=== PATIENT | female | born 1950 | race Caucasian/White ===

== ENCOUNTER → 2018-05-21 08:18 | Outpatient (CLI) | payer MEDICARE, SELFPAY ==
--- NOTE | 2018-05-21 | DI.US.S_ITS ---
PROCEDURE: US RENAL COMPLETE INDICATIONS: KIDNEY STONES TECHNIQUE: Real-time scanning was performed of the kidneys and bladder, with image documentation. COMPARISON: None. FINDINGS: Kidneys: Kidneys are normal in size. Right kidney measures 10.2 cm long; left kidney measures 10.6 cm long. Right renal cortical thickness is 1.5 cm; left renal cortical thickness is 1.8 cm. Renal cortical echotexture is normal. No hydronephrosis or nephrolithiasis. No suspicious solid mass lesions. Bladder: Pre-void bladder volume is 94 mL. Post-void residual is 0 mL. Pre-void images demonstrate no intraluminal masses or stones. On pre-void images, neither of the ureteral jets are noted with color Doppler interrogation. (Of note, ureteral jets may not be detectable in up to 25% of cases due to insufficient differences in specific gravity between ureteral and bladder urine). Miscellaneous: No free pelvic fluid. IMPRESSION: No kidney stones can be seen on these ultrasound images. Dictated by: Cruz Cheek M.D. on 05/21/2018 at 9:53 Approved by: Cruz Cheek M.D. on 05/21/2018 at 9:54
== END ==
PROVIDERS: Visit Provider Family Medicine
DX: N20.0 Calculus of kidney (principal)
CPT/HCPCS: 76770

== ENCOUNTER → 2018-05-30 12:16 | Outpatient (CLI) | payer MEDICARE, SELFPAY ==
[2018-05-30 12:31] LABS: Add Manual Diff / Slide Review NO; Basophils Percent Auto 1.2 % (0-2); Eosinophils Percent Auto 1.5 % (2-4); Hemoglobin 13.9 g/dL (12.0-16.0); Lymphocytes Percent Auto 22.8 % (25-40); Mean Corpuscular HGB Conc 33.8 % (30-36); Mean Corpuscular Hemoglobin 32.7 PG (26-34); Mean Corpuscular Volume 96.6 fL (80-100); Monocytes Percent Auto 9.3 % (3-14); Neutrophils Absolute Auto 2400 /uL (3000-5900); Neutrophils Percent Auto 65.2 % (50-75); Platelet Count 187 X10^3/uL (150-400); Red Blood Cell Count 4.25 X10^6/uL (4.0-5.2); Red Cell Distribution Width 13.2 % (11.6-14.8); White Blood Cell Count 3.7 X10^3/uL (4.5-11.0)
[2018-05-30 13:03] LABS: Alanine Aminotransferase 27 IU/L (9-52); Albumin 4.7 g/dL (3.5-5.0); Albumin Globulin Ratio 1.6 (1.0-2.8); Alkaline Phosphatase 69 U/L (38-126); Aspartate Aminotransferase 47 IU/L (14-36); Bilirubin Total 0.9 mg/dL (0.2-1.3); Blood Urea Nitrogen 8 mg/dL (7-17); Calcium 9.7 mg/dL (8.4-10.2); Carbon Dioxide 27 mmol/L (22-32); Chloride 95 mmol/L (98-107); Estimated Glomerular Filt Rate > 60.0 mL/min (>60); Globulin 2.9 g/dL (1.7-4.1); Glucose 99 mg/dL (80-110); HEMOLYSIS < 15 (0-50); Potassium 4.6 mmol/L (3.4-5.1); Sodium 133 mmol/L (137-145); Total Protein 7.6 g/dL (6.3-8.2)
== END ==
PROVIDERS: Visit Provider Physician Assistant
DX: R10.9 Unspecified abdominal pain (principal)
CPT/HCPCS: 36415; 80053; 85025

== ENCOUNTER 2019-06-06 21:33 | Emergency (ER) | payer MEDICARE, SELFPAY ==
[2019-06-06 21:45] VITALS: BP 158/81; PULSE 80; RESP 18; TEMP 36.8; O2SAT 98; BMI 19.7
[2019-06-06] MEDS: SODIUM CHLORIDE 0.9% 1,000 ML 1000 ML IV ×2 (22:00→23:54)
--- NOTE | 2019-06-06 22:17 | ED.NAVMDI ---
HPI - Nausea/Vomiting/Diarrhea General Chief complaint: Nausea/Vomiting/Diarrhea Stated complaint: nausea and vomiting all day Time Seen by Provider: 06/06/19 22:03 Source: patient Mode of arrival: Ambulatory Limitations: no limitations History of Present Illness HPI Narrative: 68-year-old female. Prior history of breast cancer. Is currently in remission. Here for evaluation of nausea and vomiting throughout the day. Multiple episodes. No blood in his these episodes. No recent camping. No recent antibiotic use. No sick contacts. No diarrhea. Did have some Zofran at home however she states this is not been helping any of her symptoms. Related Data Home Medications Medication Instructions Recorded Confirmed amlodipine 5 mg tablet 5 mg PO DAILY tab 06/06/19 06/06/19 ondansetron HCl 4 mg tablet 4 mg PO Q6-8H PRN 06/06/19 06/06/19 trazodone 50 mg tablet 50 mg PO BEDTIME PRN tab 06/06/19 06/06/19 Previous Rx's Medication Instructions Recorded ondansetron HCl [Zofran] 4 mg PO Q6-8H PRN #14 tab 06/07/19 Allergies Allergy/AdvReac Type Severity Reaction Status Date / Time eye drop preservative Allergy Uncoded 06/06/19 21:48 Review of Systems Constitutional Constitutional: Denies fever(s) Cardiovascular Cardiovascular: Denies chest pain and Denies dyspnea Respiratory Respiratory: Denies dyspnea Gastrointestinal Gastrointestinal: Denies abdominal pain, Denies change in stool character, Reports nausea and Reports vomiting Genitourinary Genitourinary: Denies dysuria Musculoskeletal Musculoskeletal: Denies myalgias and Denies arthralgias Integumentary/Breasts Skin/Breast: Denies rash Neurologic Neurologic: Denies behavioral changes Psychiatric Psychiatric: Denies anxiety and Denies behavioral changes Hematologic/Lymphatic Hematologic/Lymphatic: Denies easy bleeding and Denies easy bruising [facility] Medical History Breast cancer (Acute) Social History Smoking Status: Former smoker Social History Smoking Status: Former smoker Exam Initial Vital Signs Initial Vital Signs: Vital Signs Temperature 98.2 F 06/06/19 21:45 Pulse Rate 80 06/06/19 21:45 Respiratory Rate 18 06/06/19 21:45 Blood Pressure 158/81 H 06/06/19 21:45 Pulse Oximetry 98 06/06/19 21:45 Const General: cooperative, healthy appearing, comfortable, well developed and well groomed Orientation: alert and oriented x3 Resp Effort & Inspection: normal respiratory effort Auscultation: clear to auscultation bilaterally Cardio Rate: regular rate Rhythm: regular rhythm GI Inspection: non-distended Palpation: soft and No firm Skin Lesions: no lesions Rashes: no rashes Neuro General: alert and awake Cognition: normal cognition Speech: speech normal Extrem General: normal to inspection, capillary refill normal and No edema Psych Appearance: grossly normal and well kempt Course Orders Ordered: ED Orders 06/06/19 21:50 Complete Blood Count AUTO DIFF Stat Comprehensive Metabolic Panel Stat Lipase Stat 06/06/19 22:52 Urine Microscopic Stat Discontinued Medications Sodium Chloride (Normal Saline 0.9%) 1,000 mls @ 1,000 mls/hr IV BOLUS ONE Stop: 06/06/19 23:16 Last Infusion: 06/06/19 23:23 Dose: 0 mls/hr Documented by: Admin: 06/06/19 22:00 Dose: 1,000 mls/hr Documented by: CAPRICE Sodium Chloride (Normal Saline 0.9%) 1,000 mls @ 1,000 mls/hr IV BOLUS ONE Stop: 06/07/19 00:37 Last Infusion: 06/07/19 01:09 Dose: 0 mls/hr Documented by: Admin: 06/06/19 23:54 Dose: 1,000 mls/hr Documented by: SANTANA Metoclopramide HCl (Reglan) 10 mg IV NOW ONE Stop: 06/06/19 22:18 Last Admin: 06/06/19 22:41 Dose: 10 mg Documented by: CAPRICE Ondansetron HCl (Zofran) 4 mg IV NOW ONE Stop: 06/06/19 23:43 Last Admin: 06/06/19 23:53 Dose: 4 mg Documented by: SANTANA Vital Signs Vital signs: Vital Signs - 8 hr 06/06/19 21:45 06/06/19 22:59 06/07/19 01:28 Temperature 98.2 F Pulse Rate 80 66 64 Respiratory Rate 18 17 14 Blood Pressure 158/81 H 144/71 H Blood Pressure [Left Arm] 154/69 H Pulse Oximetry 98 100 99 MDM - Nausea/Vomiting/Diarrhea Lab Data Attestation: I reviewed the patient's lab results. Result diagrams: 06/06/19 21:50 06/06/19 21:50 Labs: Lab Results 06/06/19 06/06/19 06/06/19 Range/Units 21:50 21:50 21:50 WBC 4.7 (4.5-11.0) X10^3/uL RBC 4.02 (4.0-5.2) X10^6/uL Hgb 13.7 (12.0-16.0) g/dL Hct 40.1 (36-46) % MCV 99.8 (80-100) fL MCH 34.1 H (26-34) PG MCHC 34.2 (30-36) % RDW 13.8 (11.6-14.8) % Plt Count 210 (150-400) X10^3/uL Neut % (Auto) 77.5 H (50-75) % Lymph % (Auto) 15.1 L (25-40) % [place] % (Auto) 5.5 (3-14) % Eos % (Auto) 0.6 L (2-4) % Baso % (Auto) 1.3 (0-2) % Neut # (Auto) 3600 (2713-9986) /uL Lymph # (Auto) 700 L (6741-2762) /uL [place] # (Auto) 300 (0-900) /uL Eos # (Auto) 0 (0-450) /uL Baso # (Auto) 100 (0-100) /uL Sodium 131 L (137-145) mmol/L Potassium 3.7 (3.4-5.1) mmol/L Chloride 95 L (98-107) mmol/L Carbon Dioxide 28 (22-32) mmol/L BUN 13 (7-17) mg/dL Creatinine 0.60 (0.52-1.04) mg/dL Estimated GFR > 60.0 (>60) mL/min BUN/Creatinine Ratio 21.7 (6-22) Glucose 133 H (80-110) mg/dL Calcium 9.3 (8.4-10.2) mg/dL Total Bilirubin 0.8 (0.2-1.3) mg/dL AST 45 H (14-36) IU/L ALT 19 (9-52) IU/L Alkaline Phosphatase 85 (38-126) U/L Total Protein 7.4 (6.3-8.2) g/dL Albumin 4.4 (3.5-5.0) g/dL Globulin 3.0 (1.7-4.1) g/dL Albumin/Globulin Ratio 1.5 (1.0-2.8) Lipase 246 (23-300) U/L Urine RBC (0-5/HPF) Urine WBC (0-5/HPF) Ur Squamous Epith Cells (0-5/HPF) Amorphous Sediment Urine Bacteria (None) Hyaline Casts (None) Ur Culture Indicated? 06/06/19 Range/Units 22:52 WBC (4.5-11.0) X10^3/uL RBC (4.0-5.2) X10^6/uL Hgb (12.0-16.0) g/dL Hct (36-46) % MCV (80-100) fL MCH (26-34) PG MCHC (30-36) % RDW (11.6-14.8) % Plt Count (150-400) X10^3/uL Neut % (Auto) (50-75) % Lymph % (Auto) (25-40) % [place] % (Auto) (3-14) % Eos % (Auto) (2-4) % Baso % (Auto) (0-2) % Neut # (Auto) (7786-4840) /uL Lymph # (Auto) (6920-0327) /uL [place] # (Auto) (0-900) /uL Eos # (Auto) (0-450) /uL Baso # (Auto) (0-100) /uL Sodium (137-145) mmol/L Potassium (3.4-5.1) mmol/L Chloride (98-107) mmol/L Carbon Dioxide (22-32) mmol/L BUN (7-17) mg/dL Creatinine (0.52-1.04) mg/dL Estimated GFR (>60) mL/min BUN/Creatinine Ratio (6-22) Glucose (80-110) mg/dL Calcium (8.4-10.2) mg/dL Total Bilirubin (0.2-1.3) mg/dL AST (14-36) IU/L ALT (9-52) IU/L Alkaline Phosphatase (38-126) U/L Total Protein (6.3-8.2) g/dL Albumin (3.5-5.0) g/dL Globulin (1.7-4.1) g/dL Albumin/Globulin Ratio (1.0-2.8) Lipase (23-300) U/L Urine RBC 0-1/hpf (0-5/HPF) Urine WBC 1-5/hpf (0-5/HPF) Ur Squamous Epith Cells 1-5 /hpf (0-5/HPF) Amorphous Sediment 1+ Urine Bacteria Occasional (0-1) (None) Hyaline Casts 0-1/lpf (None) Ur Culture Indicated? Cult not indicated Urine Dip Bedside Urine Glucose Negative Bedside Urine Bilirubin - Negative Bedside Urine Ketone ++ 40 Urine Specific [place] 10.015 Bedside Urine Occult Blood - Negative Bedside Urine pH 7.0 Bedside Urine Protein +/- 15 Bedside Urine Urobilinogen - Negative Bedside Urine Nitrite - Negative Bedside Urine Leukocytes - Negative Esterase MDM Narrative Medical decision making narrative: Patient had a benign exam. After 1 L of fluids she failed an oral challenge. She was given more Zofran another L fluids and labs were checked. These were unremarkable. After the 2nd L fluids and the IV Zofran she did tolerate oral intake. No indication for antibiotics. Did inform her that she could expect some loose stools over the next day or so. She was given return precautions and follow-up instructions. She expressed understanding and agreement with plan. Discharge Plan Departure Patient Disposition: Home Clinical Impression: Nausea & vomiting Qualifiers: Vomiting type: unspecified Vomiting Intractability: non-intractable Qualified Code(s): R11.2 - Nausea with vomiting, unspecified Discharge Date/Time: 06/07/19 01:30 Instructions: Nausea and Vomiting-Adult Activity Restrictions/Additional Instructions: Recommend that you drink small amounts of fluid over long periods of time. Use the nausea medication as needed. Return to the emergency department for any new or worsening symptoms Prescriptions: New ondansetron HCl [Zofran] 4 mg tablet 4 mg PO Q6-8H PRN (Reason: nausea and vomiting) Qty: 14 RF: 0 No Action amlodipine 5 mg tablet 5 mg PO DAILY RF: 0 trazodone 50 mg tablet 50 mg PO BEDTIME PRNRF: 0 ondansetron HCl [Zofran] 4 mg tablet 4 mg PO Q6-8H PRNRF: 0
[2019-06-06] MEDS: METOCLOPRAMIDE 10 MG/2 ML INJ IV (22:41)
[2019-06-06 22:59] VITALS: BP 154/69; PULSE 66; RESP 17; O2SAT 100
[2019-06-06 23:05] LABS: Amorphous Sediment Urine 1+; Bacteria Urine Occasional (0-1); Squamous Epithelial Cell Urine 1-5 /HPF (0-5/HPF); WBC Urine 1-5/HPF (0-5/HPF)
[2019-06-06 23:06] LABS: Culture Indicated Urine Cult Not Indicated; Hyaline Casts Urine 0-1/LPF; RBC Urine 0-1/HPF (0-5/HPF)
--- NOTE | 2019-06-06 23:44 | PC.NURSE ---
Pt took 4 or 5 ice chips and began to feel more nausous and spit up the ice chips. Provider notified. zofran and lab orders received
[2019-06-06 23:51] LABS: Alanine Aminotransferase 19 IU/L (9-52); Albumin 4.4 g/dL (3.5-5.0); Albumin Globulin Ratio 1.5 (1.0-2.8); Alkaline Phosphatase 85 U/L (38-126); Aspartate Aminotransferase 45 IU/L (14-36); BUN Creatinine Ratio 21.7 (6-22); Bilirubin Total 0.8 mg/dL (0.2-1.3); Blood Urea Nitrogen 13 mg/dL (7-17); Calcium 9.3 mg/dL (8.4-10.2); Carbon Dioxide 28 mmol/L (22-32); Chloride 95 mmol/L (98-107); Estimated Glomerular Filt Rate > 60.0 mL/min (>60); Glucose 133 mg/dL (80-110); HEMOLYSIS < 15 (0-50); Lipase 246 U/L (23-300); Potassium 3.7 mmol/L (3.4-5.1); Sodium 131 mmol/L (137-145); Total Protein 7.4 g/dL (6.3-8.2)
[2019-06-06] MEDS: ONDANSETRON 4 MG/2 ML INJ IV (23:53)
[2019-06-06 23:57] LABS: Add Manual Diff / Slide Review NO; Basophils Absolute Auto 100 /uL (0-100); Basophils Percent Auto 1.3 % (0-2); Eosinophils Absolute Auto 0 /uL (0-450); Eosinophils Percent Auto 0.6 % (2-4); Hematocrit 40.1 % (36-46); Hemoglobin 13.7 g/dL (12.0-16.0); Lymphocytes Absolute Auto 700 /uL (1100-4500); Lymphocytes Percent Auto 15.1 % (25-40); Mean Corpuscular HGB Conc 34.2 % (30-36); Mean Corpuscular Hemoglobin 34.1 PG (26-34); Mean Corpuscular Volume 99.8 fL (80-100); Monocytes Absolute Auto 300 /uL (0-900); Monocytes Percent Auto 5.5 % (3-14); Neutrophils Absolute Auto 3600 /uL (1500-7000); Neutrophils Percent Auto 77.5 % (50-75); Platelet Count 210 X10^3/uL (150-400); Red Blood Cell Count 4.02 X10^6/uL (4.0-5.2); Red Cell Distribution Width 13.8 % (11.6-14.8); White Blood Cell Count 4.7 X10^3/uL (4.5-11.0)
[2019-06-07 01:28] VITALS: BP 144/71; PULSE 64; RESP 14; O2SAT 99
== END 2019-06-07 01:30 | disposition home or self-care (01) ==
PROVIDERS: Emergency Provider Emergency Medicine
DX: R11.2 Nausea with vomiting, unspecified (principal)
CPT/HCPCS: 36591; 80053; 81003; 81015; 83690; 85025; 96361; 96374; 96375; 99283; 99284; J2405; J2765

== ENCOUNTER 2019-06-07 10:00 | Emergency (ER) | payer MEDICARE, SELFPAY ==
[2019-06-07 10:07] VITALS: BP 160/86; PULSE 81; RESP 18; TEMP 36.5; O2SAT 100; BMI 19.1
--- NOTE | 2019-06-07 10:23 | ED.NAVMDI ---
HPI - Nausea/Vomiting/Diarrhea General Chief complaint: Nausea/Vomiting/Diarrhea Stated complaint: N/V Time Seen by Provider: 06/07/19 10:01 Source: patient Mode of arrival: Ambulatory History of Present Illness HPI Narrative: 68-year-old female nonsmoker with history of hypertension returns for re-evaluation after a visit last evening for nausea and vomiting. Patient states she has had much less vomiting but continues to be nauseated and has had a few episodes of dry heaving. She denies any fever or chills and has a vague cramping abdominal discomfort but certainly no pain. She is not dizzy nor weak or lightheaded. She has not taken her medications yet today because of the dry heaves. She denies any recent travel, use of antibiotics, bad food or exposure to ill persons. Last night she had a thorough evaluation and was given Zofran and right gland as well as IV fluids. She does mention that she stop drinking alcohol a few days ago, roughly at the time when her symptoms started. She consumes 2-3 drinks regularly. MD complaint: nausea and vomiting Onset (ago): day(s) Description of Vomiting: watery and bilious Description of Diarrhea: none Associated Abdominal Pain: Yes (Low-grade crampy) Location of pain: diffuse Severity: mild Quality: cramping Pain Consistency: intermittent Relieving factors: none Exacerbating factors: none Context: alcohol abuse Associated symptoms: denies other symptoms Related Data Home Medications Medication Instructions Recorded Confirmed amlodipine 5 mg tablet 5 mg PO DAILY tab 06/06/19 06/06/19 ondansetron HCl 4 mg tablet 4 mg PO Q6-8H PRN 06/06/19 06/06/19 trazodone 50 mg tablet 50 mg PO BEDTIME PRN tab 06/06/19 06/06/19 Previous Rx's Medication Instructions Recorded lorazepam [Ativan] 1 mg PO BID #19 tab 06/07/19 ondansetron HCl [Zofran] 4 mg PO Q6-8H PRN #14 tab 06/07/19 Allergies Allergy/AdvReac Type Severity Reaction Status Date / Time eye drop preservative Allergy Uncoded 06/06/19 21:48 Review of Systems Constitutional Constitutional: Denies chills, Denies fatigue, Denies fever(s), Denies frequent falls, Denies lethargy and Denies weakness Eyes Eyes: Denies change in vision, Denies eye discharge, Denies irritation and Denies loss of vision ENT Ears, Nose, Mouth, and Throat: Denies change in voice, Denies dizziness, Denies neck pain, Denies sore throat and Denies throat swelling Cardiovascular Cardiovascular: Denies chest pain, Denies irregular heart rhythm, Denies lightheadedness, Denies palpitations, Denies dyspnea, Denies dyspnea on exertion and Denies orthopnea Respiratory Respiratory: Denies cough, Denies dyspnea, Denies dyspnea on exertion and Denies wheezing Gastrointestinal Gastrointestinal: Denies abdominal pain, Denies change in bowel habits, Denies diarrhea, Reports nausea and Reports vomiting Genitourinary Genitourinary: Denies hematuria, Denies flank pain, Denies urinary incontinence and Denies urinary urgency Musculoskeletal Musculoskeletal: Denies back pain, Denies muscle weakness, Denies neck pain, Denies numbness and Denies tingling Integumentary/Breasts Skin/Breast: Denies pruritus, Denies erythema, Denies rash and Denies wounds Neurologic Neurologic: Denies behavioral changes, Denies confusion, Denies dizziness, Denies frequent falls, Denies loss of vision, Denies numbness, Denies tingling and Denies weakness Psychiatric Psychiatric: Denies anxiety, Denies behavioral changes, Denies confusion, Denies depression, Denies homicidal ideation and Denies suicidal ideation Endocrine Endocrine: Denies fatigue, Denies flushing and Denies palpitations Hematologic/Lymphatic Hematologic/Lymphatic: Denies easy bruising Allergic/Immunologic Allergic/Immunologic: Denies urticaria, Denies throat swelling and Denies wheezing [facility] Medical History Breast cancer (Acute) Social History Smoking Status: Former smoker Social History Smoking Status: Former smoker Exam Narrative Exam Narrative: GENERAL: [68] year old patient appears stated age. Well-nourished, well-developed patient, in mild distress. HEAD: Atraumatic. Normocephalic. EYES: Pupils equal round and reactive. Extraocular motions intact. No scleral icterus. No injection or drainage. ENT: Nose without bleeding, purulent drainage. Throat without erythema, tonsillar hypertrophy or exudate. Airway patent. NECK: Trachea midline. Non tender CARDIOVASCULAR: Regular rate and rhythm without murmurs, gallops, or rubs. RESPIRATORY: Clear to auscultation. Breath sounds equal bilaterally. No wheezes, rales, or rhonchi. GASTROINTESTINAL: Abdomen soft, non-tender, nondistended. EXTREMITIES: No edema or joint tenderness. BACK: Nontender without deformity or crepitance. No flank tenderness. NEURO: AOx3. SKIN: No rash or erythema of visible areas Initial Vital Signs Initial Vital Signs: Vital Signs Temperature 97.7 F 06/07/19 10:07 Pulse Rate 81 06/07/19 10:07 Respiratory Rate 18 06/07/19 10:07 Blood Pressure 160/86 H 06/07/19 10:07 Pulse Oximetry 100 06/07/19 10:07 Course Orders Ordered: ED Orders 06/07/19 10:11 Complete Blood Count AUTO DIFF Stat Comprehensive Metabolic Panel Stat Lipase Stat 06/07/19 11:43 Urine Microscopic Stat Discontinued Medications Sodium Chloride (Normal Saline 0.9%) 1,000 mls @ 1,000 mls/hr IV BOLUS ONE Stop: 06/07/19 11:12 Last Infusion: 06/07/19 11:53 Dose: 0 mls/hr Documented by: Admin: 06/07/19 10:44 Dose: 1,000 mls/hr Documented by: DENNY Lorazepam (Ativan) 1 mg 0.02 mg/kg (1 mg) IV NOW ONE Stop: 06/07/19 11:10 Last Admin: 06/07/19 11:23 Dose: 1 mg Documented by: DENNY Ondansetron HCl (Zofran) 4 mg IV NOW ONE Stop: 06/07/19 10:14 Last Admin: 06/07/19 10:44 Dose: 4 mg Documented by: MEISENTex Pantoprazole Sodium (Protonix) 40 mg IV NOW ONE Stop: 06/07/19 10:14 Last Admin: 06/07/19 10:43 Dose: 40 mg Documented by: MEISENTex Pantoprazole Sodium (Protonix) 40 mg IV NOW ONE Stop: 06/07/19 10:22 Last Admin: 06/07/19 10:48 Dose: Not Given Documented by: DENNY Reevaluation(s) Reevaluation #1: Patient feels tremendous relief after Ativan. We did discuss that there may be a small component of mild withdrawal contributing to her nausea and vomiting. The temporal relationship between her quitting and the onset of symptoms is unclear, but she obviously feels tremendous relief after receipt of Ativan raising the suspicion of some component of withdrawal. She was able to drink water and keep her medications down. She has had her questions answered to her apparent satisfaction and has been given extensive return precautions Vital Signs Vital signs: Vital Signs - 8 hr 06/07/19 11:25 06/07/19 11:43 06/07/19 12:20 Pulse Rate 66 62 Respiratory Rate 18 Blood Pressure [Right Arm] 171/85 H 161/85 H 147/87 H Pulse Oximetry 99 100 MDM - Nausea/Vomiting/Diarrhea Lab Data Result diagrams: 06/07/19 10:11 06/07/19 10:11 Labs: Lab Results 06/07/19 06/07/19 06/07/19 Range/Units 10:11 10:11 11:43 WBC 4.5 (4.5-11.0) X10^3/uL RBC 4.13 (4.0-5.2) X10^6/uL Hgb 14.1 (12.0-16.0) g/dL Hct 41.3 (36-46) % MCV 100.0 (80-100) fL MCH 34.1 H (26-34) PG MCHC 34.2 (30-36) % RDW 13.6 (11.6-14.8) % Plt Count 208 (150-400) X10^3/uL Neut % (Auto) 87.2 H (50-75) % Lymph % (Auto) 8.3 L (25-40) % [place] % (Auto) 4.0 (3-14) % Eos % (Auto) 0.0 L (2-4) % Baso % (Auto) 0.5 (0-2) % Neut # (Auto) 3900 (9711-4187) /uL Lymph # (Auto) 1400 (3495-3332) /uL [place] # (Auto) 900 (0-900) /uL Eos # (Auto) 0 (0-450) /uL Baso # (Auto) 0 (0-100) /uL RBC Morphology Normal morphology Sodium 132 L (137-145) mmol/L Potassium 3.7 (3.4-5.1) mmol/L Chloride 92 L (98-107) mmol/L Carbon Dioxide 25 (22-32) mmol/L BUN 10 (7-17) mg/dL Creatinine 0.60 (0.52-1.04) mg/dL Estimated GFR > 60.0 (>60) mL/min BUN/Creatinine Ratio 16.7 (6-22) Glucose 123 H (80-110) mg/dL Calcium 9.4 (8.4-10.2) mg/dL Total Bilirubin 1.2 (0.2-1.3) mg/dL AST 45 H (14-36) IU/L ALT 18 (9-52) IU/L Alkaline Phosphatase 78 (38-126) U/L Total Protein 7.6 (6.3-8.2) g/dL Albumin 4.6 (3.5-5.0) g/dL Globulin 3.0 (1.7-4.1) g/dL Albumin/Globulin Ratio 1.5 (1.0-2.8) Lipase 158 (23-300) U/L Urine RBC 0-1/hpf (0-5/HPF) Urine WBC 0-1/hpf (0-5/HPF) Ur Squamous Epith Cells 0-1 /hpf (0-5/HPF) Urine Bacteria None seen (None) Ur Culture Indicated? Cult not indicated Urine Dip Bedside Urine Glucose Negative Bedside Urine Bilirubin - Negative Bedside Urine Ketone +++ 80 Urine Specific [place] 1.015 Bedside Urine Occult Blood + Bedside Urine pH 6.5 Bedside Urine Protein +/- 15 Bedside Urine Urobilinogen - Negative Bedside Urine Nitrite - Negative Bedside Urine Leukocytes - Negative Esterase Discharge Plan Departure Patient Disposition: Home Clinical Impression: Nausea & vomiting Qualifiers: Vomiting type: unspecified Vomiting Intractability: non-intractable Qualified Code(s): R11.2 - Nausea with vomiting, unspecified Discharge Date/Time: 06/07/19 13:12 Instructions: DI for Dehydration -- Adult, DI for Vomiting -- Adult Activity Restrictions/Additional Instructions: 1. Drink plenty of fluids with frequent small sips. 2. For the next 24 hours a clear liquid diet is advised. After that please employ a brat diet which would include bananas, rice, apples, toast. 3. Please take medications as directed. 4. Please follow-up with your doctor in the next 1-2 days. Call the office for an appointment. 5. Please return to the emergency Department for any worsening or persistent symptoms, such as increasing pain or fever. Prescriptions: New lorazepam [Ativan] 1 mg tablet 1 mg PO BID Qty: 19 RF: 0 No Action amlodipine 5 mg tablet 5 mg PO DAILY RF: 0 trazodone 50 mg tablet 50 mg PO BEDTIME PRNRF: 0 ondansetron HCl [Zofran] 4 mg tablet 4 mg PO Q6-8H PRNRF: 0 ondansetron HCl [Zofran] 4 mg tablet 4 mg PO Q6-8H PRN (Reason: nausea and vomiting) Qty: 14 RF: 0
[2019-06-07 10:34] LABS: Add Manual Diff / Slide Review NO; Basophils Absolute Auto 0 /uL (0-100); Eosinophils Absolute Auto 0 /uL (0-450); Lymphocytes Absolute Auto 1400 /uL (1100-4500); Monocytes Absolute Auto 900 /uL (0-900); Neutrophils Absolute Auto 3900 /uL (1500-7000)
[2019-06-07] MEDS: PANTOPRAZOLE 40 MG VIAL IV (10:43)
[2019-06-07] MEDS: SODIUM CHLORIDE 0.9% 1,000 ML 1000 ML IV (10:44)
[2019-06-07] MEDS: ONDANSETRON 4 MG/2 ML INJ IV (10:44)
[2019-06-07 11:20] LABS: Basophils Percent Auto 0.5 % (0-2); Hematocrit 41.3 % (36-46); Hemoglobin 14.1 g/dL (12.0-16.0); Lymphocytes Percent Auto 8.3 % (25-40); Mean Corpuscular HGB Conc 34.2 % (30-36); Mean Corpuscular Hemoglobin 34.1 PG (26-34); Neutrophils Percent Auto 87.2 % (50-75); Platelet Count 208 X10^3/uL (150-400); Red Blood Cell Count 4.13 X10^6/uL (4.0-5.2); Red Cell Distribution Width 13.6 % (11.6-14.8)
[2019-06-07] MEDS: LORazepam 2 MG/ML INJ 1 MG IV (11:23)
[2019-06-07 11:25] VITALS: BP 171/85; PULSE 66; RESP 18; O2SAT 99
[2019-06-07 11:43] VITALS: BP 161/85
[2019-06-07 11:43] LABS: Alanine Aminotransferase 18 IU/L (9-52); Albumin 4.6 g/dL (3.5-5.0); Albumin Globulin Ratio 1.5 (1.0-2.8); Alkaline Phosphatase 78 U/L (38-126); Aspartate Aminotransferase 45 IU/L (14-36); BUN Creatinine Ratio 16.7 (6-22); Bilirubin Total 1.2 mg/dL (0.2-1.3); Blood Urea Nitrogen 10 mg/dL (7-17); Calcium 9.4 mg/dL (8.4-10.2); Carbon Dioxide 25 mmol/L (22-32); Chloride 92 mmol/L (98-107); Estimated Glomerular Filt Rate > 60.0 mL/min (>60); Glucose 123 mg/dL (80-110); HEMOLYSIS < 15 (0-50); Lipase 158 U/L (23-300); Potassium 3.7 mmol/L (3.4-5.1); Total Protein 7.6 g/dL (6.3-8.2)
[2019-06-07 11:53] LABS: White Blood Cell Count 4.5 X10^3/uL (4.5-11.0)
[2019-06-07 11:54] LABS: Sodium 132 mmol/L (137-145)
[2019-06-07 12:08] LABS: RBC Morphology Normal Morphology
[2019-06-07 12:13] LABS: Bacteria Urine None Seen
[2019-06-07 12:20] VITALS: BP 147/87; PULSE 62; O2SAT 100
[2019-06-07 12:26] LABS: Culture Indicated Urine Cult Not Indicated; RBC Urine 0-1/HPF (0-5/HPF); Squamous Epithelial Cell Urine 0-1 /HPF (0-5/HPF); WBC Urine 0-1/HPF (0-5/HPF)
== END 2019-06-07 13:12 | disposition home or self-care (01) ==
PROVIDERS: Emergency Provider Emergency Medicine
DX: R11.2 Nausea with vomiting, unspecified (principal)
CPT/HCPCS: 36591; 80053; 81003; 81015; 83690; 85025; 96361; 96374; 96375; 99283; 99284; C9113; J2060; J2405

== ENCOUNTER → 2021-04-13 14:01 | Outpatient (CLI) | payer MEDICARE, SELFPAY ==
[2021-04-13 15:38] LABS: Add Manual Diff / Slide Review NO; Basophils Absolute Auto 0 /uL (0-100); Basophils Percent Auto 0.4 % (0-2); Eosinophils Absolute Auto 0 /uL (0-450); Eosinophils Percent Auto 0.9 % (2-4); Hematocrit 39.7 % (36-46); Hemoglobin 13.1 g/dL (12.0-16.0); Lymphocytes Absolute Auto 600 /uL (1100-4500); Lymphocytes Percent Auto 17.2 % (25-40); Mean Corpuscular Hemoglobin 32.9 PG (26-34); Mean Corpuscular Volume 99.8 fL (80-100); Monocytes Absolute Auto 300 /uL (0-900); Monocytes Percent Auto 7.1 % (3-14); Neutrophils Absolute Auto 2700 /uL (1500-7000); Neutrophils Percent Auto 74.4 % (50-75); Platelet Count 158 X10^3/uL (150-400); Red Blood Cell Count 3.98 X10^6/uL (4.0-5.2); Red Cell Distribution Width 14.7 % (11.6-14.8); White Blood Cell Count 3.7 X10^3/uL (4.5-11.0)
[2021-04-13 15:51] LABS: Alanine Aminotransferase 31 IU/L (<35); Albumin 4.2 g/dL (3.5-5.0); Albumin Globulin Ratio 1.6 (1.0-2.8); Alkaline Phosphatase 57 U/L (38-126); Aspartate Aminotransferase 64 IU/L (14-36); BUN Creatinine Ratio 10.9 (6-22); Bilirubin Total 0.9 mg/dL (0.2-1.3); Blood Urea Nitrogen 10 mg/dL (7-17); Calcium 9.3 mg/dL (8.4-10.2); Carbon Dioxide 26 mmol/L (22-32); Chloride 100 mmol/L (98-107); Estimated Glomerular Filt Rate > 60.0 mL/min (>60); Globulin 2.7 g/dL (1.7-4.1); Glucose 97 mg/dL (80-110); HEMOLYSIS < 15 (0-50); Lipase 114 U/L (23-300); Potassium 3.2 mmol/L (3.4-5.1); Sodium 134 mmol/L (137-145); Total Protein 6.9 g/dL (6.3-8.2)
[2021-04-13 16:24] LABS: TSH w/ Reflex to FT4 1.48 uIU/mL (0.47-4.68)
== END ==
PROVIDERS: PCP Physician Assistant; Referring Provider Physician Assistant; Visit Provider Physician Assistant
DX: R53.83 Other fatigue (principal); I10 Essential (primary) hypertension; R11.2 Nausea with vomiting, unspecified
CPT/HCPCS: 36415; 80053; 83690; 84443; 85025

== ENCOUNTER 2023-03-18 09:23 | Emergency (ER) | payer MEDICARE, SELFPAY ==
[2023-03-18] VITALS (15 sets, daily range): BP systolic 134–184; BP diastolic 61–90; PULSE 65–98; RESP 12–29; TEMP 36.5; O2SAT 94–99; BMI 19.1
--- NOTE | 2023-03-18 09:32 | DI.RAD.S_ITS ---
PROCEDURE: XR CHEST 2V INDICATIONS: short of breath TECHNIQUE: 2 views of the chest were acquired. COMPARISON: None. FINDINGS: Surgical changes and devices: None. Lungs and pleura: Lungs are clear. No pleural effusions or pneumothorax. Mediastinum: Mediastinal contours are normal. Heart size is normal. Bones and chest wall: No suspicious bony abnormalities. Soft tissues appear unremarkable. IMPRESSION: No acute cardiopulmonary process. Dictated by: Jostin Epps M.D. on 03/18/2023 at 9:52 Approved by: Jostin Epps M.D. on 03/18/2023 at 9:52
[2023-03-18 09:53] LABS: COVID19 -Nasal RAPID Negative (Negative)
--- NOTE | 2023-03-18 10:53 | ED_ITS ---
HPI - SOB/Dyspnea <Melony Lentz PA-C - Last Filed: 03/18/23 15:30> General Chief Complaint: Shortness of Breath/Dyspnea Stated Complaint: SOB T-7 Time Seen by Provider: 03/18/23 10:05 Source: patient Mode of arrival: Ambulatory Limitations: no limitations History of Present Illness HPI Narrative: 72-year-old female with past medical history seasonal allergies, hypertension presents to the ED with 5 days of dyspnea on exertion. Patient states she has a history of seasonal allergies for which she occasionally takes Zyrtec as needed. Patient endorses that she has been feeling increasingly short of breath with mild activity such as walking. Patient also endorses a cough. Patient denies fever, chills, sore throat, runny nose, chest pain, nausea, vomiting, abdominal pain, lightheadedness, dizziness, syncope. Patient states that she has a distant history of some mitral valve pathology, however states that nothing has been done about it and that it resolve. Patient denies COPD, emphysema, asthma. Patient is a distant smoker. Smoked for about 25-30 years, quit 20 years ago. Patient 2 drinks of alcohol daily. Related Data Home Medications Medication Instructions Recorded Confirmed amlodipine 5 mg tablet 5 mg PO DAILY 06/06/19 03/18/23 trazodone 50 mg tablet 50 mg PO BEDTIME PRN Insomnia 06/06/19 03/18/23 Previous Rx's Medication Instructions Recorded lorazepam 1 mg tablet (Ativan) 1 mg PO BID #19 tabs 06/07/19 ondansetron HCl 4 mg tablet 4 mg PO Q6-8H PRN nausea and 06/07/19 (Zofran) vomiting #14 tabs Allergies Allergy/AdvReac Type Severity Reaction Status Date / Time eye drop preservative Allergy Uncoded 03/18/23 09:29 Review of Systems <Melony Lentz PA-C - Last Filed: 03/18/23 15:30> Review of Systems ROS Unobtainable: All systems reviewed & are unremarkable except as noted in HPI and below Constitutional Constitutional: Denies chills, Denies fatigue, Denies fever(s), Denies frequent falls, Denies lethargy and Denies weakness Eyes Eyes: Denies change in vision, Denies eye discharge, Denies irritation and D enies loss of vision ENT Ears, Nose, Mouth, and Throat: Denies change in voice, Denies dizziness, Denies neck pain, Denies sore throat and Denies throat swelling Cardiovascular Cardiovascular: Denies chest pain, Denies irregular heart rhythm, Denies lightheadedness, Denies palpitations, Reports dyspnea, Reports dyspnea on exertion and Denies orthopnea Respiratory Respiratory: Reports cough, Reports dyspnea, Reports dyspnea on exertion and Denies wheezing Gastrointestinal Gastrointestinal: Denies abdominal pain, Denies change in bowel habits, Denies diarrhea, Denies nausea and Denies vomiting Genitourinary Genitourinary: Denies hematuria, Denies flank pain, Denies urinary incontinence and Denies urinary urgency Musculoskeletal Musculoskeletal: Denies back pain, Denies muscle weakness, Denies neck pain, Denies numbness and Denies tingling Integumentary/Breasts Skin/Breast: Denies pruritus, Denies erythema, Denies rash and Denies wounds Neurologic Neurologic: Denies behavioral changes, Denies confusion, Denies dizziness, Denies frequent falls, Denies loss of vision, Denies numbness, Denies tingling and Denies weakness Psychiatric Psychiatric: Denies anxiety, Denies behavioral changes, Denies confusion, Denies depression, Denies homicidal ideation and Denies suicidal ideation Endocrine Endocrine: Denies fatigue, Denies flushing and Denies palpitations Hematologic/Lymphatic Hematologic/Lymphatic: Denies easy bruising Allergic/Immunologic Allergic/Immunologic: Denies urticaria, Denies throat swelling and Denies wheezing Patient History <Melony Lentz PA-C - Last Filed: 03/18/23 15:30> Medical History (Updated 03/18/23 @ 15:01 by Melony Lentz PA-C) Breast cancer Social History Smoking Status: Former smoker Smoking Status: Former smoker alcohol intake frequency: 0-2 drinks per day Substance Use Type: does not use Exam <Melony Lentz PA-C - Last Filed: 03/18/23 15:30> Narrative Exam Narrative: Const General:?cooperative, healthy appearing and comfortable [facility] Head:?normal to inspection Ears:?hearing grossly normal bilaterally Nose:?external nose normal Face and sinus:?normal facial exam and sinuses nontender Mouth:?oral mucosae normal Throat:?posterior oropharynx normal Eyes General:?appearance normal, both eyes and all related structures Neck Neck:?normal visual inspection and no lymphadenopathy noted Resp Effort & Inspection:?normal respiratory effort Auscultation:?clear to auscultation bilaterally Cardio Rate:?regular rate Rhythm:?regular rhythm Neuro General:?patient alert, patient awake and patient oriented x3 Initial Vital Signs Initial Vital Signs: Vital Signs Temperature 97.7 F 03/18/23 09:25 Pulse Rate 78 03/18/23 09:25 Respiratory Rate 18 03/18/23 09:25 Blood Pressure 155/70 H 03/18/23 09:25 Pulse Oximetry 99 03/18/23 09:25 Oxygen Delivery Method Room Air 03/18/23 09:25 <Ronald Tim DO - Last Filed: 03/18/23 15:35> Initial Vital Signs Initial Vital Signs: Vital Signs Temperature 97.7 F 03/18/23 09:25 Pulse Rate 78 03/18/23 09:25 Respiratory Rate 18 03/18/23 09:25 Blood Pressure 155/70 H 03/18/23 09:25 Pulse Oximetry 99 03/18/23 09:25 Oxygen Delivery Method Room Air 03/18/23 09:25 Course <Melony Lentz PA-C - Last Filed: 03/18/23 15:30> Orders Ordered: ED Orders 03/18/23 09:32 XR chest 2V Stat 03/18/23 09:33 COVID19 -Nasal RAPID Stat 03/18/23 09:40 EKG-12 Lead Stat 03/18/23 10:37 Measure peak expiratory flow ONCE RT Consult Eval and Treat NOW 03/18/23 10:47 Complete Blood Count AUTO DIFF Stat Comprehensive Metabolic Panel Stat Lactate (Lactic Acid) Stat NT-proBNP (BNP-Adult 18+) Stat Prothrombin Time INR Stat Troponin I Stat 03/18/23 11:28 CT angio chest PE protocol Stat 03/18/23 13:30 EKG-12 Lead Stat 03/18/23 14:14 Troponin I Stat Discontinued Medications Lorazepam (Lorazepam 2 Mg/Ml Inj) 1 mg IV NOW ONE Stop: 03/18/23 12:34 Last Admin: 03/18/23 12:51 Dose: 1 mg Documented By: SPF Vital Signs Vital signs: Vital Signs - 8 hr 03/18/23 09:25 03/18/23 10:18 03/18/23 10:18 Temperature 97.7 F Pulse Rate 78 Respiratory Rate 18 Blood Pressure 155/70 H 184/84 H Pulse Oximetry 99 96 Oxygen Delivery Method Room Air 03/18/23 10:30 03/18/23 10:30 03/18/23 11:00 Temperature Pulse Rate 72 Respiratory Rate 18 Blood Pressure 152/72 H 147/71 H Pulse Oximetry 98 Oxygen Delivery Method Room Air 03/18/23 11:00 03/18/23 11:30 03/18/23 11:30 Temperature Pulse Rate 70 65 Respiratory Rate 19 Blood Pressure 140/74 Pulse Oximetry 97 98 Oxygen Delivery Method 03/18/23 11:49 03/18/23 11:49 03/18/23 12:00 Temperature Pulse Rate 70 98 H Respiratory Rate 21 Blood Pressure 142/76 H Pulse Oximetry 98 94 Oxygen Delivery Method 03/18/23 12:30 03/18/23 12:57 03/18/23 12:57 Temperature Pulse Rate 79 73 Respiratory Rate 20 Blood Pressure 136/64 Pulse Oximetry 99 98 Oxygen Delivery Method 03/18/23 13:00 03/18/23 13:00 03/18/23 13:20 Temperature Pulse Rate 66 77 Respiratory Rate 12 18 Blood Pressure 134/67 157/71 H Pulse Oximetry 96 98 Oxygen Delivery Method 03/18/23 13:22 03/18/23 13:22 03/18/23 13:30 Temperature Pulse Rate 79 Respiratory Rate 26 H Blood Pressure 157/71 H 155/65 H Pulse Oximetry 95 Oxygen Delivery Method 03/18/23 13:30 03/18/23 14:00 03/18/23 14:00 Temperature Pulse Rate 84 77 Respiratory Rate 29 H 23 Blood Pressure 139/61 Pulse Oximetry 95 95 Oxygen Delivery Method 03/18/23 14:30 03/18/23 14:30 Temperature Pulse Rate 84 Respiratory Rate 27 H Blood Pressure 142/90 H Pulse Oximetry 94 Oxygen Delivery Method Room Air <Ronald Tim DO - Last Filed: 03/18/23 15:35> Orders Ordered: ED Orders 03/18/23 09:32 XR chest 2V Stat 03/18/23 09:33 COVID19 -Nasal RAPID Stat 03/18/23 09:40 EKG-12 Lead Stat 03/18/23 10:37 Measure peak expiratory flow ONCE RT Consult Eval and Treat NOW 03/18/23 10:47 Complete Blood Count AUTO DIFF Stat Comprehensive Metabolic Panel Stat Lactate (Lactic Acid) Stat NT-proBNP (BNP-Adult 18+) Stat Prothrombin Time INR Stat Troponin I Stat 03/18/23 11:28 CT angio chest PE protocol Stat 03/18/23 13:30 EKG-12 Lead Stat 03/18/23 14:14 Troponin I Stat Discontinued Medications Lorazepam (Lorazepam 2 Mg/Ml Inj) 1 mg IV NOW ONE Stop: 03/18/23 12:34 Last Admin: 03/18/23 12:51 Dose: 1 mg Documented By: JENIFER Vital Signs Vital signs: Vital Signs - 8 hr 03/18/23 09:25 03/18/23 10:18 03/18/23 10:18 Temperature 97.7 F Pulse Rate 78 Respiratory Rate 18 Blood Pressure 155/70 H 184/84 H Pulse Oximetry 99 96 Oxygen Delivery Method Room Air 03/18/23 10:30 03/18/23 10:30 03/18/23 11:00 Temperature Pulse Rate 72 Respiratory Rate 18 Blood Pressure 152/72 H 147/71 H Pulse Oximetry 98 Oxygen Delivery Method Room Air 03/18/23 11:00 03/18/23 11:30 03/18/23 11:30 Temperature Pulse Rate 70 65 Respiratory Rate 19 Blood Pressure 140/74 Pulse Oximetry 97 98 Oxygen Delivery Method 03/18/23 11:49 03/18/23 11:49 03/18/23 12:00 Temperature Pulse Rate 70 98 H Respiratory Rate 21 Blood Pressure 142/76 H Pulse Oximetry 98 94 Oxygen Delivery Method 03/18/23 12:30 03/18/23 12:57 03/18/23 12:57 Temperature Pulse Rate 79 73 Respiratory Rate 20 Blood Pressure 136/64 Pulse Oximetry 99 98 Oxygen Delivery Method 03/18/23 13:00 03/18/23 13:00 03/18/23 13:20 Temperature Pulse Rate 66 77 Respiratory Rate 12 18 Blood Pressure 134/67 157/71 H Pulse Oximetry 96 98 Oxygen Delivery Method 03/18/23 13:22 03/18/23 13:22 03/18/23 13:30 Temperature Pulse Rate 79 Respiratory Rate 26 H Blood Pressure 157/71 H 155/65 H Pulse Oximetry 95 Oxygen Delivery Method 03/18/23 13:30 03/18/23 14:00 03/18/23 14:00 Temperature Pulse Rate 84 77 Respiratory Rate 29 H 23 Blood Pressure 139/61 Pulse Oximetry 95 95 Oxygen Delivery Method 03/18/23 14:30 03/18/23 14:30 Temperature Pulse Rate 84 Respiratory Rate 27 H Blood Pressure 142/90 H Pulse Oximetry 94 Oxygen Delivery Method Room Air MDM - SOB/Dyspnea <Melony Lentz PA-C - Last Filed: 03/18/23 15:30> Lab Data 03/18/23 10:47 03/18/23 10:47 Labs: Lab Results 03/18/23 03/18/23 03/18/23 Range/Units 09:33 10:47 10:47 WBC 8.5 (4.5-11.0) X10^3/uL RBC 4.01 (4.0-5.2) X10^6/uL Hgb 14.0 (12.0-16.0) g/dL Hct 41.3 (36-46) % MCV 102.9 H (80-100) fL MCH 35.0 H (26-34) PG MCHC 34.0 (30-36) % RDW 14.0 (11.6-14.8) % Plt Count 217 (150-400) X10^3/uL Neut % (Auto) 85.0 H (50-75) % Lymph % (Auto) 8.4 L (25-40) % [place] % (Auto) 5.3 (3-14) % Eos % (Auto) 0.7 L (2-4) % Baso % (Auto) 0.6 (0-2) % Neut # (Auto) 7200 H (2920-1823) /uL Lymph # (Auto) 700 L (2892-3515) /uL [place] # (Auto) 400 (0-900) /uL Eos # (Auto) 100 (0-450) /uL Baso # (Auto) 0 (0-100) /uL PT 13.5 H (10.1-12.7) SECONDS INR 1.2 (0.9-1.3) Sodium (137-145) mmol/L Potassium (3.4-5.1) mmol/L Chloride (98-107) mmol/L Carbon Dioxide (22-32) mmol/L BUN (7-17) mg/dL Creatinine (0.52-1.04) mg/dL Estimated GFR (>60) mL/min BUN/Creatinine Ratio (6-22) Glucose (80-110) mg/dL Lactate (0.7-2.1) mmol/L Calcium (8.4-10.2) mg/dL Total Bilirubin (0.2-1.3) mg/dL AST (14-36) IU/L ALT (<35) IU/L Alkaline Phosphatase (38-126) U/L Troponin I (0.01-0.034) ng/mL NT-Pro-B Natriuret Pep (<125) pg/mL Total Protein (6.3-8.2) g/dL Albumin (3.5-5.0) g/dL Globulin (1.7-4.1) g/dL Albumin/Globulin Ratio (1.0-2.8) SARS-CoV-2 (PCR) Negative (Negative) 03/18/23 03/18/23 03/18/23 Range/Units 10:47 10:47 10:47 WBC (4.5-11.0) X10^3/uL RBC (4.0-5.2) X10^6/uL Hgb (12.0-16.0) g/dL Hct (36-46) % MCV (80-100) fL MCH (26-34) PG MCHC (30-36) % RDW (11.6-14.8) % Plt Count (150-400) X10^3/uL Neut % (Auto) (50-75) % Lymph % (Auto) (25-40) % [place] % (Auto) (3-14) % Eos % (Auto) (2-4) % Baso % (Auto) (0-2) % Neut # (Auto) (8404-7745) /uL Lymph # (Auto) (8612-6564) /uL [place] # (Auto) (0-900) /uL Eos # (Auto) (0-450) /uL Baso # (Auto) (0-100) /uL PT (10.1-12.7) SECONDS INR (0.9-1.3) Sodium 137 (137-145) mmol/L Potassium 3.9 (3.4-5.1) mmol/L Chloride 100 (98-107) mmol/L Carbon Dioxide 25 (22-32) mmol/L BUN 8 (7-17) mg/dL Creatinine 0.58 (0.52-1.04) mg/dL Estimated GFR > 60 (>60) mL/min BUN/Creatinine Ratio 13.8 (6-22) Glucose 87 (80-110) mg/dL Lactate 2.0 (0.7-2.1) mmol/L Calcium 8.9 (8.4-10.2) mg/dL Total Bilirubin 1.0 (0.2-1.3) mg/dL AST 139 H (14-36) IU/L ALT 54 H (<35) IU/L Alkaline Phosphatase 143 H (38-126) U/L Troponin I < 0.012 (0.01-0.034) ng/mL NT-Pro-B Natriuret Pep 144 H Cancelled (<125) pg/mL Total Protein 7.9 (6.3-8.2) g/dL Albumin 4.4 (3.5-5.0) g/dL Globulin 3.5 (1.7-4.1) g/dL Albumin/Globulin Ratio 1.3 (1.0-2.8) SARS-CoV-2 (PCR) (Negative) 03/18/23 Range/Units 14:14 WBC (4.5-11.0) X10^3/uL RBC (4.0-5.2) X10^6/uL Hgb (12.0-16.0) g/dL Hct (36-46) % MCV (80-100) fL MCH (26-34) PG MCHC (30-36) % RDW (11.6-14.8) % Plt Count (150-400) X10^3/uL Neut % (Auto) (50-75) % Lymph % (Auto) (25-40) % [place] % (Auto) (3-14) % Eos % (Auto) (2-4) % Baso % (Auto) (0-2) % Neut # (Auto) (2811-4775) /uL Lymph # (Auto) (8241-0404) /uL [place] # (Auto) (0-900) /uL Eos # (Auto) (0-450) /uL Baso # (Auto) (0-100) /uL PT (10.1-12.7) SECONDS INR (0.9-1.3) Sodium (137-145) mmol/L Potassium (3.4-5.1) mmol/L Chloride (98-107) mmol/L Carbon Dioxide (22-32) mmol/L BUN (7-17) mg/dL Creatinine (0.52-1.04) mg/dL Estimated GFR (>60) mL/min BUN/Creatinine Ratio (6-22) Glucose (80-110) mg/dL Lactate (0.7-2.1) mmol/L Calcium (8.4-10.2) mg/dL Total Bilirubin (0.2-1.3) mg/dL AST (14-36) IU/L ALT (<35) IU/L Alkaline Phosphatase (38-126) U/L Troponin I < 0.012 (0.01-0.034) ng/mL NT-Pro-B Natriuret Pep (<125) pg/mL Total Protein (6.3-8.2) g/dL Albumin (3.5-5.0) g/dL Globulin (1.7-4.1) g/dL Albumin/Globulin Ratio (1.0-2.8) SARS-CoV-2 (PCR) (Negative) Urine Dip Bedside Urine Glucose Negative Bedside Urine Bilirubin - Negative Bedside Urine Ketone ++ 40 Urine Specific [place] 1.010 Bedside Urine Occult Blood - Negative Bedside Urine pH 7.5 Bedside Urine Protein - Negative Bedside Urine Urobilinogen - Negative Bedside Urine Nitrite - Negative Bedside Urine Leukocytes - Negative Esterase MDM Narrative Medical decision making narrative: 72-year-old female with past medical history seasonal allergies, hypertension presents to the ED with 5 days of dyspnea on exertion. Concern for ACS versus CHF versus PE versus malignancy versus seasonal allergies versus other. Obtained EKG, chest x-ray, labs, troponin, BNP, CT chest. Workup largely unremarkable. EKG is normal sinus rhythm, no acute ST-T changes. Chest x-ray without acute findings. CT of the chest shows no pulmonary embolism, shows a left 2 mm lung nodule. Labs within normal limits BNP and troponin within normal limits. Reassessed patient. Patient states she is feeling dyspneic and appears anxious. Lungs are still clear to auscultation bilaterally. Patient is saturating well on room air at 99%. Patient states that they have not been changes to her alcohol consumption recently. Patient's hands exhibit tremors which she states she does not usually have and thinks it is because she is agitated. It is possible there is some component of alcohol withdrawal or anxiety. Will trial Ativan and reassess. Patient's symptoms improved with the Ativan. Repeat troponin still within normal limits, repeat Ekg with no acute findings. Discussed findings with patient. Discussed dangers of alcohol withdrawal. Recommend prompt follow-up with PCP for further evaluation. Give patient resources on how to find a new PCP. ED return precautions were discussed with patient. Patient verbalized understanding. Medical records reviewed: Yes <Ronald Tim, - Last Filed: 03/18/23 15:35> Lab Data Labs: Lab Results 03/18/23 03/18/23 03/18/23 Range/Units 09:33 10:47 10:47 WBC 8.5 (4.5-11.0) X10^3/uL RBC 4.01 (4.0-5.2) X10^6/uL Hgb 14.0 (12.0-16.0) g/dL Hct 41.3 (36-46) % MCV 102.9 H (80-100) fL MCH 35.0 H (26-34) PG MCHC 34.0 (30-36) % RDW 14.0 (11.6-14.8) % Plt Count 217 (150-400) X10^3/uL Neut % (Auto) 85.0 H (50-75) % Lymph % (Auto) 8.4 L (25-40) % [place] % (Auto) 5.3 (3-14) % Eos % (Auto) 0.7 L (2-4) % Baso % (Auto) 0.6 (0-2) % Neut # (Auto) 7200 H (0740-3079) /uL Lymph # (Auto) 700 L (7602-0457) /uL [place] # (Auto) 400 (0-900) /uL Eos # (Auto) 100 (0-450) /uL Baso # (Auto) 0 (0-100) /uL PT 13.5 H (10.1-12.7) SECONDS INR 1.2 (0.9-1.3) Sodium (137-145) mmol/L Potassium (3.4-5.1) mmol/L Chloride (98-107) mmol/L Carbon Dioxide (22-32) mmol/L BUN (7-17) mg/dL Creatinine (0.52-1.04) mg/dL Estimated GFR (>60) mL/min BUN/Creatinine Ratio (6-22) Glucose (80-110) mg/dL Lactate (0.7-2.1) mmol/L Calcium (8.4-10.2) mg/dL Total Bilirubin (0.2-1.3) mg/dL AST (14-36) IU/L ALT (<35) IU/L Alkaline Phosphatase (38-126) U/L Troponin I (0.01-0.034) ng/mL NT-Pro-B Natriuret Pep (<125) pg/mL Total Protein (6.3-8.2) g/dL Albumin (3.5-5.0) g/dL Globulin (1.7-4.1) g/dL Albumin/Globulin Ratio (1.0-2.8) SARS-CoV-2 (PCR) Negative (Negative) 03/18/23 03/18/23 03/18/23 Range/Units 10:47 10:47 10:47 WBC (4.5-11.0) X10^3/uL RBC (4.0-5.2) X10^6/uL Hgb (12.0-16.0) g/dL Hct (36-46) % MCV (80-100) fL MCH (26-34) PG MCHC (30-36) % RDW (11.6-14.8) % Plt Count (150-400) X10^3/uL Neut % (Auto) (50-75) % Lymph % (Auto) (25-40) % [place] % (Auto) (3-14) % Eos % (Auto) (2-4) % Baso % (Auto) (0-2) % Neut # (Auto) (6031-3216) /uL Lymph # (Auto) (6368-7743) /uL [place] # (Auto) (0-900) /uL Eos # (Auto) (0-450) /uL Baso # (Auto) (0-100) /uL PT (10.1-12.7) SECONDS INR (0.9-1.3) Sodium 137 (137-145) mmol/L Potassium 3.9 (3.4-5.1) mmol/L Chloride 100 (98-107) mmol/L Carbon Dioxide 25 (22-32) mmol/L BUN 8 (7-17) mg/dL Creatinine 0.58 (0.52-1.04) mg/dL Estimated GFR > 60 (>60) mL/min BUN/Creatinine Ratio 13.8 (6-22) Glucose 87 (80-110) mg/dL Lactate 2.0 (0.7-2.1) mmol/L Calcium 8.9 (8.4-10.2) mg/dL Total Bilirubin 1.0 (0.2-1.3) mg/dL AST 139 H (14-36) IU/L ALT 54 H (<35) IU/L Alkaline Phosphatase 143 H (38-126) U/L Troponin I < 0.012 (0.01-0.034) ng/mL NT-Pro-B Natriuret Pep 144 H Cancelled (<125) pg/mL Total Protein 7.9 (6.3-8.2) g/dL Albumin 4.4 (3.5-5.0) g/dL Globulin 3.5 (1.7-4.1) g/dL Albumin/Globulin Ratio 1.3 (1.0-2.8) SARS-CoV-2 (PCR) (Negative) 03/18/23 Range/Units 14:14 WBC (4.5-11.0) X10^3/uL RBC (4.0-5.2) X10^6/uL Hgb (12.0-16.0) g/dL Hct (36-46) % MCV (80-100) fL MCH (26-34) PG MCHC (30-36) % RDW (11.6-14.8) % Plt Count (150-400) X10^3/uL Neut % (Auto) (50-75) % Lymph % (Auto) (25-40) % [place] % (Auto) (3-14) % Eos % (Auto) (2-4) % Baso % (Auto) (0-2) % Neut # (Auto) (9748-6128) /uL Lymph # (Auto) (3160-4933) /uL [place] # (Auto) (0-900) /uL Eos # (Auto) (0-450) /uL Baso # (Auto) (0-100) /uL PT (10.1-12.7) SECONDS INR (0.9-1.3) Sodium (137-145) mmol/L Potassium (3.4-5.1) mmol/L Chloride (98-107) mmol/L Carbon Dioxide (22-32) mmol/L BUN (7-17) mg/dL Creatinine (0.52-1.04) mg/dL Estimated GFR (>60) mL/min BUN/Creatinine Ratio (6-22) Glucose (80-110) mg/dL Lactate (0.7-2.1) mmol/L Calcium (8.4-10.2) mg/dL Total Bilirubin (0.2-1.3) mg/dL AST (14-36) IU/L ALT (<35) IU/L Alkaline Phosphatase (38-126) U/L Troponin I < 0.012 (0.01-0.034) ng/mL NT-Pro-B Natriuret Pep (<125) pg/mL Total Protein (6.3-8.2) g/dL Albumin (3.5-5.0) g/dL Globulin (1.7-4.1) g/dL Albumin/Globulin Ratio (1.0-2.8) SARS-CoV-2 (PCR) (Negative) Urine Dip Bedside Urine Glucose Negative Bedside Urine Bilirubin - Negative Bedside Urine Ketone ++ 40 Urine Specific [place] 1.010 Bedside Urine Occult Blood - Negative Bedside Urine pH 7.5 Bedside Urine Protein - Negative Bedside Urine Urobilinogen - Negative Bedside Urine Nitrite - Negative Bedside Urine Leukocytes - Negative Esterase Discharge Plan Departure Patient Disposition: Home Clinical Impression: Shortness of Breath Instructions: DI for Shortness of Breath Activity Restrictions/Additional Instructions: You were evaluated in the ED today for shortness of breath. Your EKG, chest x- ray labs, labs, CT did not show any findings that explain your symptoms. Your CT did show some incidental finding which included a 2 mm left-sided lung nodule. You did have some hand tremors, anxiety which could be related to alcohol withdrawal. Your symptoms did improve with Ativan. Please be aware that alcohol withdrawal can be very serious with symptoms starting from tremors, anxiety, agitation, to delirium, coma, . You can go into alcohol withdrawal if you stop alcohol cold turkey or reduce the amount of alcohol that you normally drink. Please call [phone] to inquire about getting a new PCP. You may also go to the website [email or web address] for more information on how to set up with a new PCP. Please follow-up with the PCP for further evaluation of the shortness of breath and lung nodule, possible alcohol cessation. Return to the ED if you have worsening shortness of breath, chest pain. Prescriptions: No Action amlodipine 5 mg tablet 5 mg PO DAILY Patient Comments: I don't always take it trazodone 50 mg tablet 50 mg PO BEDTIME PRN (Reason: Insomnia) lorazepam [Ativan] 1 mg tablet 1 mg PO BID Qty: 19 0RF Patient Comments: for flights only Rx Instructions: Day 1: 2mg PO q6 Day 2: 2mg PO q8 Day 3: 2mg PO q12 Day 4: 1mg PO qhs #19 ondansetron HCl [Zofran] 4 mg tablet 4 mg PO Q6-8H PRN (Reason: nausea and vomiting) Qty: 14 0RF Referrals: Miscellaneous,Doctor, MD [Primary Care Provider] - Stand Alone Forms: Patient Portal/API <Ronald Tim, DO - Last Filed: 03/18/23 15:35> [facility]: Dr Tim Co-Sign Statement: I was available for consultation during this patient's emergency department visit. This chart is signed by myself for administrative purposes only. I did not have direct contact with this patient during this visit. They were seen independently by the APC.
[2023-03-18 11:05] LABS: Add Manual Diff / Slide Review NO; Basophils Absolute Auto 0 /uL (0-100); Basophils Percent Auto 0.6 % (0-2); Eosinophils Absolute Auto 100 /uL (0-450); Eosinophils Percent Auto 0.7 % (2-4); Hematocrit 41.3 % (36-46); Lymphocytes Absolute Auto 700 /uL (1100-4500); Lymphocytes Percent Auto 8.4 % (25-40); Mean Corpuscular Volume 102.9 fL (80-100); Monocytes Absolute Auto 400 /uL (0-900); Monocytes Percent Auto 5.3 % (3-14); Neutrophils Absolute Auto 7200 /uL (1500-7000); Platelet Count 217 X10^3/uL (150-400); Red Blood Cell Count 4.01 X10^6/uL (4.0-5.2); White Blood Cell Count 8.5 X10^3/uL (4.5-11.0)
[2023-03-18 11:09] LABS: Alanine Aminotransferase 54 IU/L (<35); Albumin 4.4 g/dL (3.5-5.0); Albumin Globulin Ratio 1.3 (1.0-2.8); Alkaline Phosphatase 143 U/L (38-126); Aspartate Aminotransferase 139 IU/L (14-36); BUN Creatinine Ratio 13.8 (6-22); Blood Urea Nitrogen 8 mg/dL (7-17); Calcium 8.9 mg/dL (8.4-10.2); Carbon Dioxide 25 mmol/L (22-32); Chloride 100 mmol/L (98-107); Estimated Glomerular Filt Rate > 60 mL/min (>60); Globulin 3.5 g/dL (1.7-4.1); Glucose 87 mg/dL (80-110); HEMOLYSIS < 15 (0-50); Potassium 3.9 mmol/L (3.4-5.1); Sodium 137 mmol/L (137-145); Total Protein 7.9 g/dL (6.3-8.2)
[2023-03-18 11:13] LABS: INR 1.2 (0.9-1.3); Prothrombin Time 13.5 SECONDS (10.1-12.7)
[2023-03-18 11:20] LABS: NT-proBNP (BNP-Adult 18+) 144 pg/mL (<125); Troponin I < 0.012 ng/mL (0.01-0.034)
--- NOTE | 2023-03-18 11:28 | DI.CT.S_ITS ---
PROCEDURE: CT ANGIO CHEST PE PROTOCOL INDICATIONS: shortness of breath TECHNIQUE: After the administration of intravenous contrast, 2 mm thick sections acquired from the pulmonary apices to the posterior costophrenic angles. 3-dimensional maximum intensity projection (MIP) coronal and sagittal reformats were then acquired through the thorax. For radiation dose reduction, the following was used: automated exposure control, adjustment of mA and/or kV according to patient size. COMPARISON: None. FINDINGS: Image quality: Excellent. Pulmonary arteries: Pulmonary arteries are normal in size, and demonstrate no intraluminal filling defects to suggest central pulmonary embolism. Lungs and pleura: Lungs are clear. No pleural effusions or pneumothorax. Central and peripheral airways are patent. Bibasilar atelectasis. Juxtapleural nodule with smooth margins, benign. 2 millimeter solid nodule in the left lower lobe (series 5, image 167). Mediastinum: Heart size is normal, without pericardial effusion. No mediastinal or hilar adenopathy. Thoracic aorta is normal in caliber and enhancement. Esophagus is normal in caliber, without hiatal hernia. Bones and chest wall: Chronic appearing compression deformity of the L1 vertebral body, with 2 millimeter endplate retropulsion. Ribs and thoracic spine appear intact throughout. Thyroid gland is unremarkable. No axillary or supraclavicular adenopathy. Abdomen: Probable hepatic steatosis. IMPRESSION: No pulmonary embolus or findings to explain the patient's shortness of breath. Chronic appearing compression deformity of the L1 vertebral body, with 2 millimeter endplate retropulsion. 2 millimeter solid nodule, left lower lobe. Consider 12 month follow-up if at high risk for developing lung cancer, per Fleischner Society guidelines. Dictated by: Jostin Epps M.D. on 03/18/2023 at 12:03 Approved by: Jostin Epps M.D. on 03/18/2023 at 12:06
[2023-03-18] MEDS: LORazepam 2 MG/ML INJ 1 MG IV (12:51)
[2023-03-18 14:49] LABS: Troponin I < 0.012 ng/mL (0.01-0.034)
== END 2023-03-18 15:07 | disposition home or self-care (01) ==
PROVIDERS: Emergency Medicine; Emergency Provider Student in an Organized Health Care Education/Training Program
DX: R06.02 Shortness of breath (principal); R07.9 Chest pain, unspecified; Z20.822 Contact with and (suspected) exposure to COVID-19
CPT/HCPCS: 36415; 71046; 71275; 80053; 81003; 83605; 83880; 84484; 85025; 85610; 87635; 93005; 93010; 96374; 99284; C9803; J2060